=== PATIENT | male | born 1980 | race Caucasian/White ===

== ENCOUNTER 2023-08-22 20:42 | Emergency (ER) | payer OTHER, SELFPAY ==
[2023-08-22 20:48] VITALS: BP 148/96
--- NOTE | 2023-08-22 21:43 | ED.GENMED ---
History of Present Illness
General
Chief Complaint: Musculo-Skeletal Complaint
Source: patient
Exam Limitations: none
Time Seen by Provider: 08/22/23 21:19
Travel History
Have you had any contact with someone who has COVID-19?: No
Do you have any symptoms of coronavirus? Fever > 100 degrees, chills, cough, shortness of breath, sore throat, loss of taste or smell, muscle aches, or headache?: No
History of Present Illness
History of Present Illness:
43-year-old male who presents with pain in the posterior right lower extremity. Pickleball and when he pushed off felt like he was hit with an ax. Patient complains of pain distal to the calf posteriorly. Denies numbness or tingling. States he
cannot walk on it
Past History
Past History
ED Past Medical History: Asthma
ED Past Surgical History: Orthopedic
Social History
Tobacco: Non-smoker
Personal:
Living: with family
Employment: Employed (interning as school principle)
Phy Exam
Physical Exam
Physical Exam:
CONSTITUTIONAL Vital signs reviewed, Patient alert and oriented to person, place and time. Well-appearing
HEAD atraumatic, normocephalic.
EYES eyelids normal to inspection, Extraocular muscles intact, Conjunctiva normal, Sclera normal.
NECK normal range of motion, Trachea midline, no jugular venous distention.
RESP no respiratory distress
BACK No obvious deformities
UPPER EXTREMITY Gross Range of motion normal, gross motor strength normal
LOWER EXTREMITY normal bilateral pulses in the lower extremities, defect palpable at the right Achilles. Abnormal Andrews test. Unable to plantarflex.
NEURO Speech normal, No focal motor deficits include, [place] coma scale 15, Memory normal, Cranial Nerves intact to screening exam.
SKIN Skin warm, dry, and normal in color.
PSYCHIATRIC Patient oriented to person place and time, Normal affect.
Course
Orders/Labs/Results
Orders:
Orders
08/22/23 21:43
Hydrocodone 5/APAP 325 [[place] 5/325] 2 tablet PO NOW STA
Vital Signs
Initial and Last Documented VS:
Initial Vital Signs
Temp Pulse Resp BP Pulse Ox
97.9 F 104 18 148/96 97
08/22/23 20:48 08/22/23 20:48 08/22/23 20:48 08/22/23 20:48 08/22/23 20:48
Last Documented Vital Signs
Temp Pulse Resp BP Pulse Ox
97.9 F 104 18 148/96 97
08/22/23 20:48 08/22/23 20:48 08/22/23 20:48 08/22/23 20:48 08/22/23 20:48
Procedures
Splint Check
Splint checked by provider?: Yes
Circulation/Movement/Sensation post splint application: brisk cap refill and pulses intact
MDM/Problems Addressed
MDM/Problems Addressed:
Achilles tendon injury
*Pulse Oximetry
Patient hypoxic: no
*Critical Care Note
Total Time (30-74mins, 75-104mins- exclusive of procedures): Not Applicable
Data Reviewed
Source: patient and significant other
Further Testing Considered But Not Given:
Considered x-rays but no clinical concern for bony injury
Patient Management
Escalation/DeEscalation of care consider admission/obs:
Patient splinted. Crutches and nonweightbearing. Outpatient orthopedic follow-up
ED Attending Note
-
Portions of this chart may have been created with voice recognition software.� Occasional wrong word or��sound alike� substitutions may have occurred due to the inherent limitations of voice recognition software.
Discharge Plan
Departure
Patient Disposition: Home (Routine Discharge)
Date of Disposition: 08/22/23
Time of Disposition: 21:44
Patient with high blood pressure during this ER visit?: Yes
Discharge Problem:
Achilles rupture, right
Instructions: Achilles tendon injury, How to Use Crutches, Splint Care
Prescriptions:
New
hydrocodone-acetaminophen 5-325 mg tablet
2 tab PO Q6H PRN (Reason: Pain) Qty: 20 0RF
No Action
citalopram 10 MG tablet
10 mg PO DAILY
azithromycin [Zithromax] 250 MG tablet
250 mg PO UD Qty: 0 0RF
albuterol sulfate 5 MG/ML solution for nebulization
5 mg inhalation Q4H Qty: 10 0RF
oxycodone-acetaminophen 5 MG/325 MG tablet
1 tab PO Q4HPRN PRN (Reason: pain) Qty: 8 0RF
prednisone 10 MG tablet
10 mg PO .TAPER Qty: 30 0RF
Rx Instructions:
Take 40mg daily x3days, 30mg daily x3days,
20mg daily x3days, 10mg daily x3days.
hydrocodone-acetaminophen 1 TABLET tablet
1 tab PO Q4HPRN PRN (Reason: pain) Qty: 8 0RF
diazepam 5 MG tablet
5 mg PO TIDPRN PRN (Reason: spasm) Qty: 9 0RF
Referrals:
Steve Radford, DO [Active] -
Activity Restrictions/Additional Instructions:
Please rest, ice and elevate your injured leg. Please continue to be nonweightbearing until evaluated by orthopedics. Return immediately for numbness, tingling, chest pain, shortness of breath, discoloration or any other concerns.
Interventions
Interventions:
*Risk Screen - Suicide Last Done: 08/22/23 20:52
*General Assessment Last Done: 08/22/23 20:52
*Neglect/Abuse Screening Last Done: 08/22/23 20:52
ED- Fall Risk Assessment Last Done: 08/22/23 22:11
*ED COVID-19 Vaccine History Last Done: 08/22/23 22:11
*Nursing Disposition Last Done: 08/22/23 22:11
ED-Musculoskeletal Assessment Last Done: 08/22/23 22:09
Discharge Date and Time
Discharge Date/Time: 08/22/23 22:12
[2023-08-22] MEDS: NORCO 5/325 2 TABLET PO (22:00)
== END 2023-08-22 22:12 | disposition home or self-care (01) ==
LOC: EMR 20:42
PROVIDERS: EMERGENCY PHYSICIAN Emergency Medicine; FAMILY PHYSICIAN Family Medicine
DX: S86.011A Strain of right Achilles tendon, initial encounter (principal); X58.XXXA Exposure to other specified factors, initial encounter; Y93.89 Activity, other specified; J45.909 Unspecified asthma, uncomplicated
CPT/HCPCS: 99282; 29515

== ENCOUNTER → 2023-09-03 17:12 | Outpatient (REF) | payer OTHER, SELFPAY | LOC: PAVMRI 17:12 | PROVIDERS: ATTENDING PHYSICIAN Orthopaedic Surgery; FAMILY PHYSICIAN Family Medicine | DX: M25.571 Pain in right ankle and joints of right foot (principal) | CPT/HCPCS: 73721 ==

== ENCOUNTER 2024-08-23 09:24 | Emergency (ER) | payer OTHER, SELFPAY ==
[2024-08-23 09:43] VITALS: BP 152/96
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
== END 2024-08-23 11:33 | disposition home or self-care (01) ==
LOC: EMR 09:24
PROVIDERS: EMERGENCY PHYSICIAN Emergency Medicine; FAMILY PHYSICIAN Family Medicine
DX: S93.402A Sprain of unspecified ligament of left ankle, initial encounter (principal); M25.562 Pain in left knee; V29.888A Rider (driver) (passenger) of other motorcycle injured in other specified transport accidents, initial encounter; J45.909 Unspecified asthma, uncomplicated
CPT/HCPCS: 99283; 73564; 73610; 73630